=== PATIENT | female | born 1990 | race Caucasian/White ===

== ENCOUNTER 2017-01-11 22:24 | Emergency (ER) | payer OTHER ==
[~2017-01-11] VITALS: Ht 162.6 cm; Wt 63.6 kg
[~2017-01-11 22:24] MED LIST: ULTRAM50 MG PO
[2017-01-11 23:27] LABS: MCH 30.8 PG (29.0-34.0); MCV 87.9 FL (83-99); MEAN PLAT.VOLUME 11.9 uM^3 (9.5-12.4); PLATELET COUNT 205 K/uL (156-360); RBC DIS.WIDTH-CV 12.1 % (11.8-14.6); RBC DIS.WIDTH-SD 38.6 % (39-53); RED BLOOD COUNT 4.55 M/uL (3.80-5.20); WHITE BLOOD COUNT 7.9 K/uL (4.1-10.2)
[2017-01-11 23:37] LABS: CHLORIDE 106 mEq/L (99-109); POTASSIUM 3.6 mEq/L (3.7-5.4); SODIUM 142 mEq/L (136-147)
[2017-01-11 23:39] LABS: GLUCOSE 107 mg/dL (70-99)
[2017-01-11 23:40] LABS: ANION GAP 11 MEQ/L (2-14)
[2017-01-11 23:43] LABS: GFR ESTIMATE (CALCULATED) > 59 mL/min/
[2017-01-11 23:44] LABS: UREA NITROGEN (BUN) 19 mg/dL (9-23)
[2017-01-12 00:24] LABS: D-DIMER ELISA 0.26 mg/L FEU (< 0.57)
[2017-01-12 00:32] LABS: QUANTITATIVE HCG < 4.0 MIU/ML
[2017-01-12] MEDS ORDERED: NAPROXEN500 MG PO (00:50)
[2017-01-12 00:57] VITALS: BP 119/77
== END 2017-01-12 00:58 | disposition home or self-care (01) ==
LOC: EME 22:24
DX: M79.604 Pain in right leg (principal); R06.00 Dyspnea, unspecified
CPT/HCPCS: 71020; 80048; 84702; 85027; 85379; 93005; 99281; 99284

== ENCOUNTER 2017-03-08 15:49 | Emergency (ER) | payer OTHER ==
[~2017-03-08] VITALS: Ht 162.6 cm; Wt 63.2 kg
[~2017-03-08 15:49] MED LIST changes: +NAPROXEN500 MG PO
[2017-03-08 17:01] LABS: HEMATOCRIT 42.2 % (36.0-46.0); MCH 29.8 PG (29.0-34.0); MCHC 33.6 G/DL (30.0-36.0); MCV 88.7 FL (83-99); RBC DIS.WIDTH-CV 11.8 % (11.8-14.6); RED BLOOD COUNT 4.76 M/uL (3.80-5.20); WHITE BLOOD COUNT 6.9 K/uL (4.1-10.2)
[2017-03-08 17:02] LABS: MEAN PLAT.VOLUME 11.7 uM^3 (9.5-12.4); PLATELET COUNT 228 K/uL (156-360)
[2017-03-08 17:06] LABS: CHLORIDE 106 mEq/L (99-109); SODIUM 142 mEq/L (136-147)
[2017-03-08 17:08] LABS: GLUCOSE 100 mg/dL (70-99)
[2017-03-08 17:09] LABS: ANION GAP 8 MEQ/L (2-14)
[2017-03-08 17:11] LABS: GFR ESTIMATE (CALCULATED) > 59 mL/min/
[2017-03-08 17:12] LABS: UREA NITROGEN (BUN) 15 mg/dL (9-23)
[2017-03-08 17:23] LABS: QUANTITATIVE HCG < 4.0 MIU/ML
[2017-03-08 18:52] LABS: ADD MIUA? YES; BILIRUBIN NEGATIVE; BLOOD NEGATIVE; COLOR YELLOW ((YELLOW)); GLUCOSE (STRIP) NEGATIVE; KETONES NEGATIVE; LEUKOCYTES LARGE; NITRITE NEGATIVE; PROTEIN (STRIP) NEGATIVE; SPECIFIC GRAVITY 1.008 (1.000-1.030); UROBILINOGEN 0.2 MG/DL (0.2-1.0)
[2017-03-08 19:18] LABS: BACTERIA RARE /HPF; EPITHELIAL CELLS 1+ /HPF; MUCUS NONE SEEN /LPF; RED BLOOD CELLS 0-5 /HPF (0-5); UCUL ADDED? NO
[2017-03-08] MEDS ORDERED: ANTIVERT12.5 MG PO (19:37)
[2017-03-08] MEDS ORDERED: ZOFRAN ODT4 MG PO (19:37)
[2017-03-08] MEDS ORDERED: KEFLEX500 MG PO (21:28)
[2017-03-08 21:57] VITALS: BP 125/82
== END 2017-03-08 21:59 | disposition home or self-care (01) ==
LOC: EME 15:49
DX: R42 Dizziness and giddiness (principal); Z88.1 Allergy status to other antibiotic agents
CPT/HCPCS: 80048; 81003; 84702; 85027; 99281; 99285

== ENCOUNTER 2017-10-23 18:35 | Emergency (ER) | payer OTHER ==
[~2017-10-23] VITALS: Ht 162.6 cm; Wt 64.6 kg
[~2017-10-23 18:35] MED LIST changes: +ANTIVERT12.5 MG PO; +KEFLEX500 MG PO; +ZOFRAN ODT4 MG PO
[2017-10-23 19:57] LABS: ADD MIUA? YES; BILIRUBIN NEGATIVE; BLOOD NEGATIVE; COLOR YELLOW ((YELLOW)); GLUCOSE (STRIP) NEGATIVE; KETONES NEGATIVE; LEUKOCYTES NEGATIVE; NITRITE NEGATIVE; PROTEIN (STRIP) NEGATIVE; SPECIFIC GRAVITY 1.018 (1.000-1.030); UROBILINOGEN 0.2 MG/DL (0.2-1.0)
[2017-10-23 20:22] LABS: BACTERIA RARE /HPF; EPITHELIAL CELLS RARE /HPF; MUCUS TRACE /LPF; RED BLOOD CELLS 0-5 /HPF (0-5); UCUL ADDED? NO; WHITE BLOOD CELLS 0-5 /HPF (0-5)
[2017-10-23 21:31] LABS: HEMATOCRIT 37.8 % (36.0-46.0); MCH 30.1 PG (29.0-34.0); MCHC 34.4 G/DL (30.0-36.0); MCV 87.5 FL (83-99); MEAN PLAT.VOLUME 10.3 uM^3 (9.5-12.4); PLATELET COUNT 292 K/uL (156-360); RBC DIS.WIDTH-CV 11.9 % (11.8-14.6); RBC DIS.WIDTH-SD 38.6 % (39-53); RED BLOOD COUNT 4.32 M/uL (3.80-5.20); WHITE BLOOD COUNT 8.9 K/uL (4.1-10.2)
[2017-10-23 21:41] LABS: CHLORIDE 105 mEq/L (99-109); POTASSIUM 3.7 mEq/L (3.7-5.4); SODIUM 137 mEq/L (136-147)
[2017-10-23 21:43] LABS: GLUCOSE 91 mg/dL (70-99)
[2017-10-23 21:44] LABS: ANION GAP 7 MEQ/L (2-14)
[2017-10-23 21:45] LABS: TOTAL BILIRUBIN 0.2 mg/dL (0.0-1.0)
[2017-10-23 21:47] LABS: ALKALINE PHOSPHATASE 68 IU/L (3-129); GFR ESTIMATE (CALCULATED) > 59 mL/min/
[2017-10-23 21:48] LABS: UREA NITROGEN (BUN) 14 mg/dL (9-23)
[2017-10-23 22:13] LABS: QUANTITATIVE HCG 19103.4 MIU/ML
[2017-10-23 23:33] VITALS: BP 107/81
== END 2017-10-23 23:34 | disposition home or self-care (01) ==
LOC: EME 18:35
DX: O26.891 Other specified pregnancy related conditions, first trimester (principal); R10.30 Lower abdominal pain, unspecified; Z3A.01 Less than 8 weeks gestation of pregnancy; Z88.1 Allergy status to other antibiotic agents
CPT/HCPCS: 76801; 80053; 81003; 84702; 85027; 99281; 99284